=== PATIENT | male | born 1940 | race Hispanic/Latino ===

== ENCOUNTER 2016-10-14 12:58 | Observation (INO) | payer MEDICARE ==
[2016-10-14] MEDS ORDERED: NITROSTAT SL PRN (13:46)
[2016-10-14] MEDS ORDERED: NACL 0.9% 1000 ML 1,000 ML IV ONE (13:46)
--- NOTE | 2016-10-14 13:48 | Emergency Department Report ---
ED Chest Pain HPI - General Chief Complaint: Chest Pain Stated Complaint: CHEST PAIN Time Seen by Provider: 10/14/16 13:39 Source: patient Mode of arrival: Stretcher Limitations: No Limitations - History of Present Illness Initial Comments: 76-year-old male presents to the emergency department via EMS from [place] for evaluation of chest pain. Patient reports the onset of sharp, midsternal chest pain while lying in bed this morning at approximately 4 AM. Pain has been constant since onset, but the intensity has improved. Patient now describes the pain as a pressure sensation. Pain does not radiate. He reports associated shortness of breath and lightheadedness. He has not lost consciousness. He denies diaphoresis, nausea, or vomiting related to this pain. Patient states he had a heart attack one year ago, but this feels different. Patient was given 325 mg of aspirin prior to arrival in the emergency department. There are no other complaints. MD Complaint: chest pain -: Sudden, This morning Time: 04:00 Onset: during rest Pain Location: substernal Pain Radiation: none Severity: moderate Severity scale (0 -10): 3 Quality: sharp, pressure Consistency: constant Improves With: nothing Worsens With: nothing re: dyspnea. denies: nausea, vomting, diaphoresis Other Symptoms: syncope (lightheadedness, no loss of consciousness) Treatments Prior to Arrival: aspirin Aspirin use within the Past 7 Days: (0) No - Related Data Allergies Allergy/AdvReac Type Severity Reaction Status Date / Time morphine Allergy Unknown Verified 10/14/16 13:15 omeprazole [From Prilosec] Allergy Unknown Verified 10/14/16 13:15 omeprazole magnesium Allergy Unknown Verified 10/14/16 13:15 [From Prilosec] VIDYA score - Vidya Score Age > 65: (1) Yes Aspirin use within the Past 7 Days: (0) No 3 or more CAD Risk Factors: (1) Yes 2 or more Angina events in past 24 hrs: (0) No Known CAD with more than 50% Stenosis: (1) Yes Elevated Cardiac Markers: (0) No ST Deviation Greater than 0.5mm: (0) No VIDYA Score: 3 ED Review of Systems ROS: Stated complaint: CHEST PAIN Other details as noted in HPI Comment: All other systems reviewed and negative Respiratory: shortness of breath Cardiovascular: chest pain, syncope (lightheadedness, no loss of consciousness) ED Past Medical Hx - Past Medical History Previous Medical History?: Yes Hx Hypertension: Yes Hx Heart Attack/AMI: Yes Additional medical history: high cholesterol - Surgical History Past Surgical History?: Yes Additional Surgical History: bilat knee replace, cervical fusion - Family History Family history: no significant - Social History Smoking Status: Former Smoker Substance Use Type: None ED Physical Exam - General Limitations: No Limitations General appearance: alert, in no apparent distress - Head Head exam: Present: atraumatic, normocephalic - Eye Eye exam: Present: normal appearance, PERRL, EOMI - ENT ENT exam: Present: normal exam, normal orophraynx, mucous membranes moist - Neck Neck exam: Present: normal inspection, full ROM. Absent: tenderness - Respiratory Respiratory exam: Present: normal lung sounds bilaterally. Absent: respiratory distress - Cardiovascular Cardiovascular Exam: Present: normal rhythm, bradycardia, normal heart sounds - GI/Abdominal GI/Abdominal exam: Present: soft, normal bowel sounds. Absent: distended, tenderness - Extremities Exam Extremities exam: Present: normal inspection, full ROM. Absent: tenderness - Back Exam Back exam: Present: normal inspection, full ROM. Absent: tenderness - Neurological Exam Neurological exam: Present: alert, oriented X3. Absent: motor sensory deficit - Skin Skin exam: Present: warm, dry, intact ED Course Vital Signs 10/14/16 13:15 Temperature 97.5 F L Pulse Rate 47 L Respiratory 18 Rate Blood Pressure 131/65 O2 Sat by Pulse 98 Oximetry ED Medical Decision Making - Lab Data Result diagrams: 10/14/16 13:33 10/14/16 13:33 - EKG Data -: EKG Interpreted by Me EKG shows normal: sinus rhythm, axis, intervals, QRS complexes, ST-T waves Rate: bradycardia - EKG Data When compared to previous EKG there are: previous EKG unavailable Interpretation: other (marked sinus bradycardia, otherwise normal ECG) - Medical Decision Making Laboratory results reviewed and discussed with the patient. I have spoken with [facility]. Patient will be admitted by the hospitalist for further evaluation. - Differential Diagnosis ACS, atypical chest pain, anxiety Critical care attestation.: If time is entered above; I have spent that time in minutes in the direct care of this critically ill patient, excluding procedure time. ED Disposition Clinical Impression: Precordial chest pain Disposition: OP ADMITTED IP TO THIS HOSP Is pt being admited?: Yes Condition: Stable Instructions: Chest Pain (ED) Referrals: PRIMARY CARE, [Primary Care Provider] - 3-5 Days Time of Disposition: 14:27
[2016-10-14 13:54] LABS: Basophils % (Auto) 0.5 % (0.0-1.8); Eosinophils % (Auto) 1.6 % (0.0-4.3); Hematocrit 38.8 % (35.5-45.6); Hemoglobin 12.9 gm/dl (11.8-15.2); Mean Corpuscular HGB Conc 33 % (32-34); Mean Corpuscular Hemoglobin 33 pg (28-32); Mean Corpuscular Volume 99 fl (84-94); Platelet Count 156 K/mm3 (140-440); Red Blood Count 3.93 M/mm3 (3.65-5.03); Red Cell Distribution Width 13.5 % (13.2-15.2); White Blood Count 5.1 K/mm3 (4.5-11.0)
--- NOTE | 2016-10-14 13:55 | Admit Criteria Form ---
Admission Criteria Documentation: CHEST PAIN Clinical Indications for Admission to Inpatient Care (Place 'X' for any and all applicable criteria): Admission is indicated for chest pain and ANY ONE of the following(1)(2)(3)(4)(5 ): [ ]I. Angina with acute coronary syndrome (Also use Myocardial Infarction or Angina guideline) [ ]II. Hemodynamic instability [ X]III. Angina needing acute intervention as indicated by ALL of the following (11)(12): [X ]a) Unstable angina is present as indicated by angina that is ANY ONE of the following: [ ]i) New onset [ ]ii) Nocturnal [X ]iii) Prolonged at rest [ ]iv) Progressive [ X]b) Angina warrants acute intervention as indicated by ANY ONE of the following: [ ]i) Recurrent angina (e.g, not responding as previously to treatment) [ ]ii) Angina at rest or with low-level activities despite initial medical therapy [ ]iii) New or presumably new ST-segment depression on ECG [ ]iv) Signs or symptoms of heart failure (eg, dyspnea, pulmonary edema) [ ]v) New or worsening mitral regurgitation [ ]vi) Hemodynamic instability [ ]vii) Dangerous arrhythmia (eg, sustained ventricular tachycardia) [ ]viii) History of percutaneous coronary intervention within 6 months [ ]ix) History of coronary artery bypass graft surgery [X ]x) VIDYA risk score of 2 or greater[A] [ ]xi) History of Diabetes(14) [ ]xii) High-risk cardiac ischemia findings on noninvasive testing (e.g, echocardiogram, treadmill testing, nuclear scan) [ ]xiii) Chronic renal insufficiency (ie, estimated GFR less than 60 mL/min/1.732m) [ ]xiv) Left ventricular ejection fraction less than 40% [ ]IV. Evidence of NH (eg, cardiac biomarkers positive, ST-segment elevation on ECG) also use Myocardial Infarction Criteria Form. [ ]V. Pulmonary edema [ ]. Respiratory distress [ ]VII. Chest pain indicative of serious diagnosis other than coronary artery disease (eg, aortic dissection) [ ]VIII. Contraindications and/or Inappropriate clinical situations for Observational Care in patients with Chest Pain, when ANY ONE of the following is required: [ ]a) Patient with risk factor for pulmonary embolism, acute coronary syndrome and myocardial infarction (18) [ ]b) Patient with Pulmonary embolism require an average LOS of 4.3 days, therefore emergency department observation management is inappropriate 18,23 [ ]c) Painful condition/s in the elderly, have the highest rate of recidivism after emergency department observation management (10.8%) 20,21,22 [ ]d) Elevated cardiac biomarker requires intensive and exhaustive care (19) [X ]IX. General contraindications and/or Inappropriate clinical situations for Observational Care in patients with Chest Pain, when ANY ONE of the following is required: [ X]a) Prediction of prolongation of LOS based on ANY ONE of the following may be considered as a contraindication for observational care 2, 3, 4, 5, 6, 7, 8, 9, 10, 11 [ X]i) Age > 65 yrs. [ X]ii) Patient arriving by ambulance [ ]iii) Patient with high acuity [ ]iv) Patient requiring vital sign monitoring [ ]v) Patient on IV medication [ ]b) Systolic blood pressures 180mmHg 3,12 [ ]c) Patient with altered mental status including delirium and other alteration of consciousness, (3) [ ]d) Patient whose discharge disposition will be to a care home home or rehabilitation home should not be managed in Emergency Department Observation Unit. CMS rule requires 3 days hospital stay before such placement. 3,13 [ ]e) Patient with failure to thrive due to broad array of etiologies 3,16,17 [ ]f) Inability to ambulate 3,14 Extended stay beyond goal length of stay may be needed for (1)(28): [ ]a) Specific condition diagnosed after evaluation (eg, pulmonary embolism, aortic dissection) [ ]b) Unstable angina [ ]c) Continued suspicion of acute coronary syndrome with inability to complete needed cardiac evaluation (eg, patient clinically unable to undergo stress testing) [ ]d) Myocardial infarction (Contents from ANGINA and CHEST PAIN clinical indications for admission to inpatient care have been integrated in this form) The original [employer] content created by [employer] has been revised. The portions of the content which have been revised are identified through the use of italic text or in bold, and [facility] has neither reviewed nor approved the modified material. All other unmodified content is copyright [employer] [facility], 1928–1983[employer]. Please see references footnoted in the original [employer] [facility], 1928–1983[employer] edition 2016 Admission Criteria Met: Yes
[2016-10-14 14:04] LABS: Anion Gap 18 mmol/L; BUN/Creatinine Ratio 26.25; Blood Urea Nitrogen 21 mg/dL (9-20); Calcium 8.5 mg/dL (8.4-10.2); Carbon Dioxide 21 mmol/L (22-30); Chloride 103.9 mmol/L (98-107); Glucose 144 mg/dL (75-100); Sodium 139 mmol/L (137-145)
[2016-10-14] MEDS ORDERED: SINEMET PO ONE (14:53)
[2016-10-14] MEDS ORDERED: ZOFRAN ONE (16:39)
[2016-10-14] MEDS ORDERED: ZOFRAN IV PRN (16:40)
[2016-10-14] MEDS ORDERED: NACL 0.9% 1000 ML 1,000 ML ONE (16:40)
--- NOTE | 2016-10-14 16:44 | Consultation ---
History of Present Illness Consult date: 10/14/16 Consult reason: chest pain History of present illness: Patient is a 76yr old man who was sent from [place] with chest pain. Patient reports a year ago he underwent coronary stenting following an Myocardial Infarction at [facility]. Patient reports he is taking plavix and aspirin therapy for his coronary artery disease. His usual recovery coordinator is in [facility]. Comobidities includes Hypertension and Diabetes. Cardiac consultation is requested for chest pain. Patient reports he woke up with chest pain this morning. He denies worsening chest pain on exertion. His ECG shows a sinus bradycardia. No acute ischemic changes. He has no shortness of breath or palpitations. There was no pre-syncope or syncope. Patient admitted for rule out ACS. Past History Past Medical History: acute [place], CAD, diabetes, hypertension Medications and Allergies Allergies Allergy/AdvReac Type Severity Reaction Status Date / Time morphine Allergy Unknown Verified 10/14/16 13:15 omeprazole [From Prilosec] Allergy Unknown Verified 10/14/16 13:15 omeprazole magnesium Allergy Unknown Verified 10/14/16 13:15 [From Prilosec] Home Medications Medication Instructions Recorded Confirmed Last Taken Type Olanzapine [ZyPREXA] 15 mg PO QDAY 10/14/16 10/14/16 Unknown History Sertraline HCl [Zoloft] 50 mg PO QDAY 10/14/16 10/14/16 Unknown History Active Meds: Active Medications Nitroglycerin (Nitrostat) 0.4 mg SL .Q5MIN PRN PRN Reason: Chest Pain Physical Examination Vital Signs Temp Pulse Resp BP Pulse Ox 97.5 F L 47 L 18 131/65 98 10/14/16 13:15 10/14/16 13:15 10/14/16 13:15 10/14/16 13:15 10/14/16 13:15 General appearance: no acute distress HEENT: Positive: PERRL Neck: Positive: trachea midline Cardiac: Positive: Bradycardia Results 10/14/16 13:33 10/14/16 13:33 Assessment and Plan Chest pain Hx of CAD Hypertension Diabetes Recommendations: Resume medical therapy for his coronary artery disease including plavix and aspirin. We will plan for a persantine thallium stress tomorrow morning for further cardiac evaluation.
[2016-10-14] MEDS ORDERED: SODIUM CHLORIDE FLUSH SYRINGE 10 ML IV PRN (23:51)
--- NOTE | 2016-10-14 23:54 | Event Note ---
Date: 10/14/16 See H/p in reports Cp r/o SC CAD Depression
--- NOTE | 2016-10-15 00:20 | History and Physical Report ---
CHIEF COMPLAINT: Left-sided chest pain. HISTORY OF PRESENT ILLNESS: A 76-year-old man who was sent from [place] for left-sided chest pain. The patient had a cardiac stent recently. The patient has been taking Plavix and aspirin. Chest pain is about 6 on a scale of 1-10. No aggravating or relieving factors. VIDYA score is 2. No shortness of breath. Past medical history significant for acute VT, coronary artery disease, diabetes, and hypertension. CURRENT MEDICATIONS: Aspirin 81 mg daily, Plavix 75 mg once a day, nitroglycerin p.r.n., and Zofran 4 mg. The patient also on sertraline and olanzapine. PAST MEDICAL HISTORY: As mentioned, hypertension, coronary artery disease, psychiatric problems, acute VT, hyperlipidemia, and depression. PAST SURGICAL HISTORY: Bilateral knee replacements, cervical fusion. FAMILY HISTORY: Hypertension. SOCIAL HISTORY: Former smoker. No illicit drugs. REVIEW OF SYSTEMS: Significant for left-sided chest pain. CONSTITUTIONAL: No fever, no chills, no weight loss. HEENT: No sore throat. No postnasal drip. CARDIOVASCULAR: As mentioned, left-sided chest pain. RESPIRATORY: No wheezing. No cough. GASTROINTESTINAL: No nausea, no vomiting, no diarrhea. MUSCULOSKELETAL: No joint pains. GENITOURINARY: No dysuria, no flank pain. SKIN: No rashes. HEMATOLOGIC AND LYMPHATIC: No bruising, no lymphedema. PSYCHIATRIC: Depression present. Also, aggressive behavior recently. The patient on 04/22. A 14-point review of systems was done. PHYSICAL EXAMINATION: GENERAL: Elderly male, cooperative during examination, very lucid, no aggressive behavior. VITAL SIGNS: Blood pressure 131/65, temperature 97.5, pulse is 47, respirations 18. HEENT: Unremarkable. Pupils equal and reactive. NECK: Supple, no lymphadenopathy, no thyromegaly. LUNGS: Clear to auscultation and percussion. Good air entry. CARDIOVASCULAR: S1, S2 heard. No gallop, no murmur, no rub. Apical impulse in left fifth intercostal space in midclavicular line. ABDOMEN: Soft and benign. No hepatosplenomegaly. No guarding, no rigidity. Hernial orifices are normal. EXTREMITIES: Good pedal pulses. No pedal edema. CENTRAL NERVOUS SYSTEM: Alert and oriented x 4. Nonfocal exam. SKIN: Normal. LABORATORY DATA: BUN and creatinine of 21 and 0.8. Hemoglobin is 12.9, potassium is 4.0. CK is normal. Troponin is less than 0.010 and 0.010. EKG shows sinus bradycardia and normal QRS complexes. ASSESSMENT AND PLAN: 1. Acute coronary syndrome. The patient will get serial cardiac enzymes and also Lexiscan in the morning. 2. Hypertension. Continue antihypertensives. 3. Coronary artery disease. Continue Plavix 75 mg daily and aspirin 81 mg daily. 4. Depression and psych problems. Continue Zyprexa 15 mg daily and sertraline 50 mg daily. 4. Deep venous thrombosis prophylaxis, Lovenox 40 mg subcutaneous daily. [facility]# [id number] PEYTON/MAXX CURRIE
[2016-10-15 03:31] LABS: Creatine Kinase MB 3.2 ng/mL (0.0-4.0)
[2016-10-15 03:32] LABS: Creatine Kinase 153 units/L (55-170)
[2016-10-15 06:51] LABS: Creatine Kinase MB 2.5 ng/mL (0.0-4.0)
[2016-10-15 06:54] LABS: Creatine Kinase 70 units/L (55-170)
[2016-10-15] MEDS ORDERED: PLAVIX PO SCH (10:00)
[2016-10-15] MEDS ORDERED: BABY ASPIRIN PO SCH (10:00)
--- NOTE | 2016-10-15 12:03 | Progress Note ---
Assessment and Plan Chest pain, atypical negative cardiac enzymes pt refused the stress thallium this morning. Hx of CAD Hypertension Diabetes Recommendations: Medical therapy for his coronary artery disease. Otherwise, we will pursue a conservative cardiac management. Subjective Date of service: 10/15/16 Interval history: Patient refused thallium stress test. He denies chest pain. Objective Vital Signs Temp Pulse Pulse Resp BP BP Pulse Ox 10/15/16 10:00 99 10/15/16 04:42 98.2 F 61 20 127/63 10/14/16 22:00 53 L 20 99 10/14/16 20:00 97.3 F L 49 L 20 173/75 99 10/14/16 17:40 44 L 14 144/67 97 10/14/16 15:25 49 L 12 136/61 97 - Physical Examination General: No Apparent Distress HEENT: Positive: PERRL Neck: Positive: trachea midline Cardiac: Positive: Reg Rate and Rhythm Lungs: Positive: Decreased Breath Sounds - Labs and Meds Cardiac Enzymes 10/15/16 10/15/16 Range/Units 02:54 06:07 CK-MB (CK-2) 3.2 2.5 (0.0-4.0) ng/mL
--- NOTE | 2016-10-15 13:22 | Progress Note ---
Assessment and Plan Assessment and plan: Atypical chest pain - Cardiac enzymes were negative - Cardiology consult appreciated - Patient finally agreed with the stress test - Will do stress test tomorrow morning if the patient stays Depression/ psychiatric illness - patient came from [place] - Mental health consult placed Disposition - will keep him one more day if he agreed or discharge him to [facility]. History Interval history: Patient didn't have any chest pain today, patient finally agreed with stress test. Hospitalist Physical - Physical exam Narrative exam: Not in cardiopulmonary distress. The patient appeared well nourished and normally developed. Vital signs as documented. Head exam is unremarkable. No scleral icterus . Neck is without jugular venous distension, thyromegaly, or carotid bruits. Lungs are clear to auscultation. Cardiac exam reveals regular rate and Rhythm. First and second heart sounds normal. No murmurs, rubs or gallops. Abdominal exam reveals normal bowel sounds, no masses, no organomegaly and no aortic enlargement. Extremities are nonedematous and both femoral and pedal pulses are normal. CORRECTIVE THERAPIST: Alert and oriented 3. No focal weakness. - Constitutional Vitals: Temp Pulse Resp BP Pulse Ox 98.2 F 61 20 127/63 99 10/15/16 04:42 10/15/16 04:42 10/15/16 04:42 10/15/16 04:42 10/15/16 10:00 General appearance: Present: no acute distress Results - Labs CBC & Chem 7: 10/14/16 13:33 10/14/16 13:33 Labs: Laboratory Last Values WBC 5.1 K/mm3 (4.5-11.0) 10/14/16 13:33 RBC 3.93 M/mm3 (3.65-5.03) 10/14/16 13:33 Hgb 12.9 gm/dl (11.8-15.2) 10/14/16 13:33 Hct 38.8 % (35.5-45.6) 10/14/16 13:33 MCV 99 fl (84-94) H 10/14/16 13:33 MCH 33 pg (28-32) H 10/14/16 13:33 MCHC 33 % (32-34) 10/14/16 13:33 RDW 13.5 % (13.2-15.2) 10/14/16 13:33 Plt Count 156 K/mm3 (140-440) 10/14/16 13:33 Lymph % (Auto) 28.0 % (13.4-35.0) 10/14/16 13:33 Blount % (Auto) 12.7 % (0.0-7.3) H 10/14/16 13:33 Eos % (Auto) 1.6 % (0.0-4.3) 10/14/16 13:33 Baso % (Auto) 0.5 % (0.0-1.8) 10/14/16 13:33 Lymph # 1.4 K/mm3 (1.2-5.4) 10/14/16 13:33 Blount # 0.7 K/mm3 (0.0-0.8) 10/14/16 13:33 Eos # 0.1 K/mm3 (0.0-0.4) 10/14/16 13:33 Baso # 0.0 K/mm3 (0.0-0.1) 10/14/16 13:33 Seg Neutrophils % 57.2 % (40.0-70.0) 10/14/16 13:33 Seg Neutrophils # 2.9 K/mm3 (1.8-7.7) 10/14/16 13:33 Sodium 139 mmol/L (137-145) 10/14/16 13:33 Potassium 4.0 mmol/L (3.6-5.0) 10/14/16 13:33 Chloride 103.9 mmol/L (98-107) 10/14/16 13:33 Carbon Dioxide 21 mmol/L (22-30) L 10/14/16 13:33 Anion Gap 18 mmol/L 10/14/16 13:33 BUN 21 mg/dL (9-20) H 10/14/16 13:33 Creatinine 0.8 mg/dL (0.8-1.5) 10/14/16 13:33 Estimated GFR > 60 ml/min 10/14/16 13:33 BUN/Creatinine Ratio 26.25 % 10/14/16 13:33 Glucose 144 mg/dL (75-100) H 10/14/16 13:33 Calcium 8.5 mg/dL (8.4-10.2) 10/14/16 13:33 Total Creatine Kinase 70 units/L (55-170) 10/15/16 06:07 CK-MB (CK-2) 2.5 ng/mL (0.0-4.0) 10/15/16 06:07 CK-MB (CK-2) Rel Index 3.5 (0-4) 10/15/16 06:07 Troponin T < 0.010 ng/mL (0.00-0.029) 10/15/16 06:07
--- NOTE | 2016-10-15 16:21 | Discharge Summary ---
Providers - Providers Date of Admission: 10/14/16 14:28 Date of discharge: 10/15/16 Attending physician: ANAT GRECO MD 10/14/16 Consult to Cardiac Rehabilitation [CONS] Routine Reason For Exam: Phase I 10/15/16 10:21 Consult to Mental Health [CONS] Routine Reason For Exam: depression, from [facility] consult to:: psychiatry Notified:: DIONE Phone number called:: [phone] Was contact made?: Yes If yes, spoke with:: DIONE Time called:: 11:13 Primary care physician: INSIGHTS ANALYST Hospitalization Condition: Stable Hospital course: Patient is a 76yr old man who was sent from [place] with chest pain. Patient reports a year ago he underwent coronary stenting following an Myocardial Infarction at [facility]. Patient reports he is taking plavix and aspirin therapy for his coronary artery disease. His usual electrician is in [facility]. Comobidities includes Hypertension and Diabetes. Cardiac enzymes were negative, showed sinus rhythm. Cardiology consulted and recommended stress test but the patient refused to have stress test. Patient would like to do his stress test by his electrician. patient didn't have any chest pain after admission. Patient transferred back to [place]. He is advised to see his electrician. Disposition: DC/TX PSY HOSP/PSY UNIT Time spent for discharge: 31 minutes - Discharge Diagnoses (1) Precordial chest pain Status: Acute (2) CAD (coronary artery disease) Status: Acute Qualifiers: Coronary Disease-Associated Artery/Lesion type: C Lime vs. transplanted heart: N Associated angina: A (3) Depression Status: Acute Qualifiers: Depression Type: D Major depression recurrence: M Active/Remission status : A Major depression episode severity: M Psychotic features: P Trimester: T Core Measure Documentation - Palliative Care Palliative Care/ Comfort Measures: Not Applicable - Core Measures Any of the following diagnoses?: none Exam - Physical Exam Narrative exam: Not in cardiopulmonary distress. The patient appeared well nourished and normally developed. Vital signs as documented. Head exam is unremarkable. No scleral icterus . Neck is without jugular venous distension, thyromegaly, or carotid bruits. Lungs are clear to auscultation. Cardiac exam reveals regular rate and Rhythm. First and second heart sounds normal. No murmurs, rubs or gallops. Abdominal exam reveals normal bowel sounds, no masses, no organomegaly and no aortic enlargement. Extremities are nonedematous and both femoral and pedal pulses are normal. CHUMMER: Alert and oriented 3. No focal weakness. - Constitutional Vitals: Temp Pulse Resp BP Pulse Ox 98.2 F 61 20 127/63 99 10/15/16 04:42 10/15/16 04:42 10/15/16 04:42 10/15/16 04:42 10/15/16 10:00 Plan Activity: no restrictions Weight Bearing Status: Full Weight Bearing Diet: low cholesterol, low salt Follow up with: PRIMARY CARE, [Primary Care Provider] - 7 Days Prescriptions: Aspirin [Aspirin BABY CHEW TAB] 81 mg PO QDAY #30 tab.chew Clopidogrel [Plavix] 75 mg PO QDAY #30 tablet
--- NOTE | 2016-10-15 17:26 | Consultation ---
History of Present Illness - Reason for Consult Consult date: 10/15/16 Reason for consult: Mental Health Evaluation Requesting physician: IRISH ZAVALA - Chief Complaint Chief complaint: "I am ready to go home" - History of Present Psychiatric Illness 76-year-old white male presents to the emergency department via EMS from [place] for evaluation of chest pain. Psychiatry was consulted to evaluate patient's mental stability. Today patient is calm, cooperative with a linear thought process. He state that he resides at a assisted living facility in [place], [place]. He admits to walking off the property in [place], [place] to hitch hike back to [place] and return. Patient stated he did the same act when he was younger man. Once he was local by authorities, he states that he was jailed for a couples of days and than sent to [place]. He states that he has struggled with anxiety, not depression. He was able to tell me his , location, and spell WORLD backward. Also, he could recall 3 numbers (8, 12, 45) given to him after 5 minutes. Patient denies SI/Hi's, AVH's or chest at this time. He rate his anxiety 2/10, with 10 being the worse. Medications and Allergies Allergies Allergy/AdvReac Type Severity Reaction Status Date / Time morphine Allergy Unknown Verified 10/14/16 13:15 omeprazole [From Prilosec] Allergy Unknown Verified 10/14/16 13:15 omeprazole magnesium Allergy Unknown Verified 10/14/16 13:15 [From Prilosec] Home Medications Medication Instructions Recorded Confirmed Last Taken Type Olanzapine [ZyPREXA] 15 mg PO QDAY 10/14/16 10/14/16 Unknown History Sertraline HCl [Zoloft] 50 mg PO QDAY 10/14/16 10/14/16 Unknown History Aspirin [Aspirin BABY CHEW TAB] 81 mg PO QDAY #30 tab.chew 10/15/16 Unknown Rx Clopidogrel [Plavix] 75 mg PO QDAY #30 tablet 10/15/16 Unknown Rx Active Meds: Active Medications Aspirin (Baby Aspirin) 81 mg PO QDAY [facility] Last Admin: 10/15/16 12:59 Dose: 81 mg Clopidogrel Bisulfate (Plavix) 75 mg PO QDAY [facility] Last Admin: 10/15/16 12:59 Dose: 75 mg Nitroglycerin (Nitrostat) 0.4 mg SL .Q5MIN PRN PRN Reason: Chest Pain Ondansetron HCl (Zofran) 4 mg IV Q8H PRN PRN Reason: Nausea And Vomiting Sodium Chloride (Sodium Chloride Flush Syringe 10 Ml) 10 ml IV PRN PRN PRN Reason: LINE FLUSH Past psychiatric history - Past Medical History Past Medical History: other (hyperlipidemia) Past Surgical History: No surgical history - past Psychiatric treatment and history Psych: Anxiety psychiatric treatment history: Current at [place]. denies a fam psy hx. - Social History Social history: other (Assisted Living) Mental Status Exam - Vital signs Last Vital Signs Temp 98.2 F 10/15/16 04:42 Pulse 61 10/15/16 04:42 Resp 20 10/15/16 04:42 BP 127/63 10/15/16 04:42 Pulse Ox 99 10/15/16 10:00 - Exam Narrative exam: ROS (-) psychosis, (-) depression Orientation: time, place, person Affect: normal, other Mood: appropriate Thought content: other (Intact) Thought Process: Intact Perceptions: none Speech: normal rate and pattern Concentration: other (Intact) Motor activity: normal Level of consciousness: alert Memory: Intact Sleep Symptoms: None Interaction: cooperative, pleasant Results Result Diagrams: 10/14/16 13:33 10/14/16 13:33 All other labs normal. Assessment and Plan Assessment and plan: Impression: 76-year-old male presents to the emergency department via EMS from [place] for evaluation of chest pain. Patient is calm and cooperative during discussion. He denies chest pain, SI/HI's, AVH's or depression at this time. He states struggling with anxiety. Recommendation/Plan: Patient can be transferred back to [place] once medically stable. Psychiatry is signing off this patient. Reconsult when indicated.
[2016-10-15 21:10] VITALS: BP 181/86
== END 2016-10-15 23:50 ==
LOC: ED 12:58 → 3A 14:28
PROVIDERS: ADMIT Internal Medicine; ATTEND Internal Medicine
DX: R07.2 Precordial pain (principal); I25.10 Atherosclerotic heart disease of native coronary artery without angina pectoris; I24.9 Acute ischemic heart disease, unspecified; E11.9 Type 2 diabetes mellitus without complications; I10 Essential (primary) hypertension; F32.9 Major depressive disorder, single episode, unspecified; E78.5 Hyperlipidemia, unspecified; I25.2 Old myocardial infarction; Z96.653 Presence of artificial knee joint, bilateral; Z87.891 Personal history of nicotine dependence
CPT/HCPCS: 36415; 80048; 82550; 82553; 84484; 85025; 93005; 93010; 93306; 96360; 99285; G0378; J2405; J7030